=== PATIENT | male | born 1990 | race American Indian/Alaskan Native ===

== ENCOUNTER 2016-11-23 05:38 | Emergency (ER) | payer OTHER, BC ==
[2016-11-23] MEDS ORDERED: NACL 0.9% IR ONE (16:00)
[2016-11-23] MEDS ORDERED: THERMAZENE 50 GRAM TP ONE ×2 (16:01→17:00)
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
[2016-11-23] MEDS ORDERED: BOOSTRIX IM ONE (16:39)
[2016-11-23 17:30] VITALS: BP 132/66
== END 2016-11-23 17:29 | disposition home or self-care (01) ==
LOC: ED 05:38
DX: T22.212A Burn of second degree of left forearm, initial encounter (principal); T24.212A Burn of second degree of left thigh, initial encounter; S80.01XA Contusion of right knee, initial encounter; Z87.891 Personal history of nicotine dependence; V49.49XA Driver injured in collision with other motor vehicles in traffic accident, initial encounter; Y93.9 Activity, unspecified; Y92.9 Unspecified place or not applicable; Y99.9 Unspecified external cause status
CPT/HCPCS: 90471; 90715; 99282

== ENCOUNTER 2017-03-17 19:20 | Emergency (ER) | payer BC, OTHER ==
[2017-03-17 19:35] VITALS: BP 154/89
[2017-03-17] MEDS ORDERED: TORADOL IM ONE (20:14)
[2017-03-17] MEDS ORDERED: MOTRIN PO ONE (20:14)
--- NOTE | 2017-03-17 20:17 | Emergency Department Report ---
- General Chief Complaint: Laceration/Recheck/Suture Stated Complaint: LACERATION TO FINGER Time Seen by Provider: 03/17/17 20:10 Source: patient Mode of arrival: Ambulatory Limitations: No Limitations - Related Data Previous Rx's Medication Instructions Recorded Last Taken Type HYDROcodone/APAP 7.5-325 [[place] 1 each PO Q6HR PRN #14 tablet 11/23/16 Unknown Rx 7.5/325] SILVER sulfADIAZINE 50 GRAM 1 applic TP ONCE #1 tube 11/23/16 Unknown Rx [Thermazene 50 Gram] Allergies Allergy/AdvReac Type Severity Reaction Status Date / Time No Known Allergies Allergy Unverified 11/23/16 16:00 ED Review of Systems ROS: Stated complaint: LACERATION TO FINGER Other details as noted in HPI ED Past Medical Hx - Past Medical History Previous Medical History?: No - Surgical History Past Surgical History?: Yes Additional Surgical History: sx o rt pinky finger - Social History Smoking Status: Former Smoker Substance Use Type: None - Medications Home Medications: Home Medications Medication Instructions Recorded Confirmed Last Taken Type HYDROcodone/APAP 7.5-325 [[place] 1 each PO Q6HR PRN #14 tablet 11/23/16 Unknown Rx 7.5/325] SILVER sulfADIAZINE 50 GRAM 1 applic TP ONCE #1 tube 11/23/16 Unknown Rx [Thermazene 50 Gram] ED Course Vital Signs 03/17/17 19:31 Temperature 98.6 F Pulse Rate 82 Respiratory 20 Rate Blood Pressure 154/89 O2 Sat by Pulse 98 Oximetry Critical care attestation.: If time is entered above; I have spent that time in minutes in the direct care of this critically ill patient, excluding procedure time. ED Disposition Additional Instructions: Return in 7 days for suture removal. Follow-up with a primary care doctor in 3-5 days or if symptoms such as numbness , tingling, fever, chills, pus or drainage return to emergency room as soon as possible. Take full course of antibiotics as prescribed.
[2017-03-17] MEDS ORDERED: MARCAINE 0.5% INFILTRATI ONE (20:33)
[2017-03-17] MEDS ORDERED: MARCAINE 0.5% INFILTRATI NR ×2 (20:37→21:00)
[2017-03-17] MEDS ORDERED: NACL 0.9% 500 ML IR ONE (22:00)
[2017-03-17] MEDS ORDERED: TRIPLE ANTIBIOTIC TP ONE ×2 (22:39→22:51)
[2017-03-17] MEDS ORDERED: NACL 0.9% IR ONE (22:53)
--- NOTE | 2017-03-17 22:59 | Emergency Department Report ---
- General Chief Complaint: Laceration/Recheck/Suture Stated Complaint: LACERATION TO FINGER Time Seen by Provider: 03/17/17 20:10 Source: patient Mode of arrival: Ambulatory Limitations: No Limitations - History of Present Illness Initial Comments: 27-year-old male with significant past medical history presents to the hospital complains a laceration to his left index finger. Patient was using a knife to open a package and accidentally sliced his left index finger. Patient is right- hand dominant. Tetanus up-to-date. Pain rated 8/10 in intensity, constant, and worse with palpation. Patient was initially seen by mid-level who express concern for possible arterial bleed and therefore patient was seen by me. Place: home Associated Symptoms: pain (aching). denies: loss of feeling/numbness, suspect foreign body present, unable to move injured part, weakness followed by dizziness, nausea/vomiting, fever Treatments Prior to Arrival: other (dressing with tape) - Related Data Previous Rx's Medication Instructions Recorded Last Taken Type HYDROcodone/APAP 7.5-325 [[place] 1 each PO Q6HR PRN #14 tablet 11/23/16 Unknown Rx 7.5/325] SILVER sulfADIAZINE 50 GRAM 1 applic TP ONCE #1 tube 11/23/16 Unknown Rx [Thermazene 50 Gram] Cephalexin [Keflex] 500 mg PO Q6HR #28 capsule 03/17/17 Unknown Rx Ibuprofen [Motrin] 800 mg PO Q8HR PRN #30 tablet 03/17/17 Unknown Rx traMADol [Ultram 50 MG tab] 50 mg PO Q6HR PRN #20 tablet 03/17/17 Unknown Rx Allergies Allergy/AdvReac Type Severity Reaction Status Date / Time No Known Allergies Allergy Unverified 11/23/16 16:00 ED Review of Systems ROS: Stated complaint: LACERATION TO FINGER Other details as noted in HPI Constitutional: denies: chills, fever Eyes: denies: eye pain, eye discharge, vision change ENT: denies: ear pain, throat pain Respiratory: denies: cough, shortness of breath, wheezing Cardiovascular: denies: chest pain, palpitations Endocrine: no symptoms reported Gastrointestinal: denies: abdominal pain, nausea, diarrhea Genitourinary: denies: urgency, dysuria Musculoskeletal: denies: back pain, joint swelling, arthralgia Skin: as per HPI. denies: rash, lesions Neurological: denies: headache, weakness, paresthesias Psychiatric: denies: anxiety, depression Hematological/Lymphatic: denies: easy bleeding, easy bruising ED Past Medical Hx - Past Medical History Previous Medical History?: No - Surgical History Past Surgical History?: Yes Additional Surgical History: sx o rt pinky finger - Social History Smoking Status: Former Smoker Substance Use Type: None - Medications Home Medications: Home Medications Medication Instructions Recorded Confirmed Last Taken Type HYDROcodone/APAP 7.5-325 [[place] 1 each PO Q6HR PRN #14 tablet 11/23/16 Unknown Rx 7.5/325] SILVER sulfADIAZINE 50 GRAM 1 applic TP ONCE #1 tube 11/23/16 Unknown Rx [Thermazene 50 Gram] Cephalexin [Keflex] 500 mg PO Q6HR #28 capsule 03/17/17 Unknown Rx Ibuprofen [Motrin] 800 mg PO Q8HR PRN #30 tablet 03/17/17 Unknown Rx traMADol [Ultram 50 MG tab] 50 mg PO Q6HR PRN #20 tablet 03/17/17 Unknown Rx ED Physical Exam - General Limitations: No Limitations General appearance: alert, in no apparent distress - Other Other exam information: General: No limitations, patient is alert in no acute distress Head exam: Atraumatic, normocephalic Eyes exam: Normal appearance, pupils equal reactive to light, extraocular movements intact ENT: Moist mucous membrane, normal oropharynx Neck exam: Normal inspection, full range of motion, no meningismus nontender Respiratory exam: Clear to auscultation bilateral, no wheezes, rales, crackles Cardiovascular: Normal rate and rhythm, normal heart sounds Abdomen: Soft, nondistended, and nontender, with normal bowel sounds, no rebound, or guarding Extremity: Left index finger laceration at the middle phalanges area on the palmar surface extending to the lateral finger/ulnar side. 3.5 cm. Distal to the wound there is a rapidly bleeding nonpulsatile vessel. cap Refill less than 2 seconds, patient is full flexion, extension, and abduction of the phalanges Back: Normal Inspection, full range of motion, no tenderness Neurologic: Alert, oriented x3, cranial nerves intact, no motor or sensory deficit Psychiatric: normal affect, normal mood Skin: Warm, dry, intact ED Course Vital Signs 03/17/17 03/17/17 19:31 21:36 Temperature 98.6 F Pulse Rate 82 Respiratory 20 18 Rate Blood Pressure 154/89 O2 Sat by Pulse 98 98 Oximetry - Laceration /Wound Repair Left Anterior Lateral Palm Finger Wound Location: upper extremity Wound Length (cm): 3 (3.5cm) Wound's Depth, Shape: linear, flap Wound Explored: clean Irrigated w/ Saline (ccs): 500 Betadine Prep?: Yes Volume Anesthetic (ccs): 5 (digital block performed with bupivicane by midlevel) Suture Size/Type: 5:0, nylon Number of Sutures: 7 Deep Layer Suture Size/Type: 6:0 Number Deep Layer Sutures: 2 (2 figure of 8 stiches with nylon at bleeding vessel) Sterile Dressing Applied?: Yes (pressure dressing) Progress: hemostasis achieved after [id number] suture placement. Then skin was closed. No oozing of blood from the wound. Refill less than 2 seconds, full range of motion persists. Pressure dressing applied prior to discharge. ED Medical Decision Making - Medical Decision Making No signs of tendon injury on exam. I suspect the patient had a small arterial or venous bleed. This small vessels ligated with preservation of distal finger blood flow. Outpatient follow-up will be encouraged - Differential Diagnosis laceration, vascular injury, tendon injury Critical Care Time: No Critical care attestation.: If time is entered above; I have spent that time in minutes in the direct care of this critically ill patient, excluding procedure time. ED Disposition Clinical Impression: Finger laceration Qualifiers: Encounter type: initial encounter Finger: index finger Damage to nail status: without damage Foreign body presence: without foreign body Laterality: left Qualified Code(s): S61.211A - Laceration without foreign body of left index finger without damage to nail, initial encounter Disposition: DC-01 TO HOME OR SELFCARE Is pt being admited?: No Does the pt Need Aspirin: No Condition: Stable Instructions: Finger Laceration (ED) Additional Instructions: Return in 7 days for suture removal. Follow-up with a primary care doctor and/or plastic surgeon in 3-5 days or if symptoms such as numbness, tingling, fever, chills, pus or drainage return to emergency room as soon as possible. Take full course of antibiotics as prescribed. Prescriptions: Cephalexin [Keflex] 500 mg PO Q6HR #28 capsule Ibuprofen [Motrin] 800 mg PO Q8HR PRN #30 tablet PRN Reason: Pain traMADol [Ultram 50 MG tab] 50 mg PO Q6HR PRN #20 tablet PRN Reason: Pain Referrals: HERB OCHOA MD [Staff Physician] - 7-10 days (plastic surgeon) PRIMARY CAREMD [Primary Care Provider] - 7-10 days [facility] [Provider Group] - 3-5 Days Time of Disposition: 23:07
== END 2017-03-17 23:21 | disposition home or self-care (01) ==
LOC: ED 19:20
DX: S61.211A Laceration without foreign body of left index finger without damage to nail, initial encounter (principal); Z87.891 Personal history of nicotine dependence; W26.0XXA Contact with knife, initial encounter; Y93.89 Activity, other specified; Y92.89 Other specified places as the place of occurrence of the external cause; Y99.8 Other external cause status
CPT/HCPCS: 12042; 96372; 99282; J1885; A6250